=== PATIENT | female | born 1940 | race Caucasian/White ===

== ENCOUNTER → 2017-01-23 | Outpatient (CLI) | payer MEDICARE, BC ==
--- NOTE | 2017-01-24 03:35 | HKNOTE ---
DATE OF SERVICE: 01/23/2017 MAIN COMPLAINT: Pain in the left knee. HISTORY OF MAIN COMPLAINT: The patient is a 76-year-old female who complains of pain and swelling i n the left knee. This started about 3 weeks ago. Before that, she has never had any pain in the kn ee. The pain started after a strenuous game of tennis. The patient is very active with tennis and plays at least 3 times a week. The knee suddenly became swollen without any injury. The pain is so bad that she had to stay in bed for a day or two and she then used a walker which had previously been used by her . She was applying a heating pad to the knee as well. Gradually the pain has decreased, but she continues to have swelling and pain in the knee. PRESENT COMPLAINTS: The pain is mainly over the medial side of the knee. There may be locking, it is difficult to know because she describes having to sit back down again when she starts standing up because the knee will not straighten. The knee is unstable, but she has not taken any falls yet. S he is not able to take any pain medications. On a level surface some days she cannot walk more than 50 steps at a time and other days she can walk much more. She limps some of the time (her says all the time). She does not have a shoe lift. She can clip her toenails. She can put on her shoes and socks. PAST ORTHOPEDIC HISTORY: Arthroscopic surgery to her right knee after a ski injury about 30 years a go. No problems with that knee. PRIOR CORTISONE INTAKE: None. ALCOHOL INTAKE: "Maybe once every 2 weeks." OTHER JOINT PROBLEMS: None. BLOOD TESTS FOR ARTHRITIS: None. PRIOR INJURIES TO HIPS OR KNEES: None other than as described above. PAST MEDICAL HISTORY: Entirely negative. PAST SURGICAL HISTORY: Operative arthroscopy of the right knee 20 years ago. DRUG ALLERGIES: None. MEDICATIONS: 1. Benazepril 1 tablet daily For hypertension. 2. Namenda daily. 3. Rosuvastatin 1 tablet daily. 4. Alendronate 70 mg daily. FAMILY HISTORY: Noncontributory. SYSTEMS REVIEW: Entirely negative. HABITS: The patient does not smoke. Alcohol intake "on rare occasions". MANAGER: Not provided. PHYSICAL EXAMINATION GENERAL: The patient comes in with her , Rodrigo Farooq who is also a patient of mine. Note th at her indicates that she has "early Alzheimer's disease." VITAL SIGNS: Height 5 feet 7 inches, weight 120 pounds. Blood pressure 118/60, temperature 98.8. GAIT: Patient's gait is antalgic. She is not using a walking aid. She has some difficulty getting on and off the examination couch. HIPS: Both hips have full range of motion without pain. Normal left knee examination modified as follows, 2+ effusion, extension lacks 5 degrees, flexion is to 100 degrees (marked pain). Marked tenderness over the medial joint line, 1+ crepitus. Normal rig ht knee examination modified as follows, flexion lacks 15 to 20 degrees. Pain on forced flexion. IMAGING: Healed portals of previous arthroscopic surgery, 2+ crepitus. Flexion lacks 20 degrees (pa inful). Plain x-rays of the left knee obtained today show mild narrowing of the medial joint space, but not completely [id number]. There is some subchondral sclerosis. Minimal joint space remainin g. Small osteophytes noted. The right knee viewed on the same images also shows marked narrowing of the medial joint space, but there is no pain in the right knee. DIAGNOSES: 1. 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 2. Probable torn meniscus. 3. Early Alzheimer's disease. 4. Hypertension MANAGEMENT: The patient and her were advised that the abrupt onset of this problem after a strenuous game of the previous day suggests that she probably has a torn meniscus. This opinion is further bolstered by the fact that the knee does not extend fully and has a very large effusion. The patient is being referred for an MRI scan of the left knee and she will be seen again at my [facility] appointment for reevaluation with the x-rays. We spent some time discussing what a meniscus is and what arthroscopic surgery entails. Dictated By: NAYAN BLANCAS/MIKI Conf#: [id number] DID#: [id number]
--- NOTE | 2017-01-24 10:01 | RADRPT ---
PROCEDURE: LEFT knee x-ray CLINICAL INDICATION: Knee pain TECHNIQUE: AP, lateral and sunrise views of the knee were obtained. COMPARISON: None FINDINGS: There is normal mineralization. No acute fracture or dislocation is seen. There is joint space narrowing, subchondral sclerosis seen within the knee joint. There are also ost eophytes. This is more pronounced in the medial compartment. There is a small left knee joint effusion. There is no significant soft tissue swelling. RPTAT: AA IMPRESSION: Moderate degenerative changes of the left knee, more pronounced in the medial compartment. .Bk Jack MD, Date Time Electronically viewed and signed by .Bk Jack MD, on 01/24/2017 10:01 .S/
== END | disposition home or self-care (01) ==
LOC: HKI 11:01
DX: M17.0 Bilateral primary osteoarthritis of knee (principal); G30.9 Alzheimer's disease, unspecified; F02.80 Dementia in other diseases classified elsewhere, unspecified severity, without behavioral disturbance, psychotic disturbance, mood disturbance, and anxiety; I10 Essential (primary) hypertension
CPT/HCPCS: 73562; G0463

== ENCOUNTER → 2017-02-07 | Outpatient (CLI) | payer MEDICARE, BC | END | disposition home or self-care (01) | LOC: HKI 09:39 | DX: M17.0 Bilateral primary osteoarthritis of knee (principal); G30.0 Alzheimer's disease with early onset; F02.80 Dementia in other diseases classified elsewhere, unspecified severity, without behavioral disturbance, psychotic disturbance, mood disturbance, and anxiety; I10 Essential (primary) hypertension | CPT/HCPCS: G0463 ==